=== PATIENT | male | born 1965 | race Caucasian/White ===

== ENCOUNTER 2019-01-04 06:05 | Emergency (ER) | payer OTHER ==
[2019-01-04] MEDS: predniSONE 20 MG TAB PO (07:59)
[2019-01-04] MEDS: HYDROCODONE/APAP (5/325) TAB PO (08:43)
== END 2019-01-04 09:20 | disposition home or self-care (01) ==
LOC: FTE 06:05
DX: M79.671 Pain in right foot (principal); E11.9 Type 2 diabetes mellitus without complications; I10 Essential (primary) hypertension
CPT/HCPCS: 99283; J7512

== ENCOUNTER 2019-06-22 16:29 | Emergency (ER) | payer OTHER ==
[2019-06-22] MEDS: ONDANSETRON (ODT) 4 MG TAB ODT (20:46)
[2019-06-22] MEDS: HYDROCODONE/APAP (10/325) TAB PO (20:47)
== END 2019-06-22 21:12 | disposition home or self-care (01) ==
LOC: E/R 16:29
DX: M79.672 Pain in left foot (principal); I12.9 Hypertensive chronic kidney disease with stage 1 through stage 4 chronic kidney disease, or unspecified chronic kidney disease; N18.9 Chronic kidney disease, unspecified; E11.22 Type 2 diabetes mellitus with diabetic chronic kidney disease
CPT/HCPCS: 73630; 73630-LT; 99283-25